=== PATIENT | female | born 1970 | race Caucasian/White ===

== ENCOUNTER → 2022-11-17 10:52 | Outpatient (REF) | payer OTHER, SELFPAY ==
--- NOTE | 2022-11-17 10:58 | CA_ITS ---
Transthoracic Echocardiogram Patient (Last, First, Middle): Kim Persaud, Gender: Female Date of : 1970 Age: 52 Procedure Date: 11/17/2022 Procedure Type: Transthoracic Echocardiogram Location: [facility] Height: 177.8 cm Weight: 167.83 kg BSA: 2.71 m2 Heart Rate: bpm BP: 110 / 70 mmHg Manager Of Development: TO Referring MD: Cheryl Grace MD Concrete Carpenter: Spencer Solis MD Symptoms: LOWER EXT EDEMA R60.0 Study Quality: Fair/Contrast ECG Rhythm: Sinus Conclusions: - Essentially normal study Findings Left Ventricle Normal left ventricular size, thickness, and systolic function. The visually estimated ejection fraction is between 65-70%. Diastolic function is normal for age. Right Ventricle Normal right ventricular cavity size. There is normal right ventricular systolic function. Atria The left atrium is normal in size. Interatrial shunt cannot be excluded. The right atrium was not well visualized. Aortic Valve The aortic valve was not well visualized. There is no aortic valve stenosis. There is no aortic valve regurgitation. Mitral Valve Likely normal mitral valve structure and function. There is trace mitral valve regurgitation. There is no mitral valve stenosis. Pulmonic Valve The pulmonic valve was not well visualized. Tricuspid Valve Likely normal tricuspid valve structure and function. There is trace tricuspid valve regurgitation. The right ventricular systolic pressure is normal. The right ventricular systolic pressure is 18 mmHg. Normal right atrial pressure. There is no evidence of pulmonary hypertension. Great Vessels All visible segments of the aorta are normal in size. The pulmonary artery was not well visualized. Venous The inferior vena cava is normal in size and collapses greater than 50% with inspiration. Pericardium/Pleural There is no evidence of pericardial effusion. Prior Study Comparison No prior study available for comparison. Measurements 2D Linear Measurements IVSd: 0.99 0.6-0.9/0.6-1.0 cm LVIDd: 4.53 3.9-5.3/4.2-5.9 cm LVIDd Index: 1.67 2.4-3.2/2.2-3.1 cm/m2 LVIDs: 2.93 2.0-3.6 cm LVPWd: 0.92 0.7-1.1 cm LA Diam: 3.70 2.7-3.8/3.0-4.0 cm LAIDs Index: 1.37 1.5-2.3 cm/m2 LV Mass: 180.84 67-162/88-224 g LV Mass Index: 66.73 43-95/49-115 g/m2 LVOT Diam: 2.00 3.0+(-)1.3 cm 2D Systolic Function EF 4C: 67.90 >55% EF 2C: 65.00 >55% EF BiP: 66.60 >55% Mitral Valve MV Pk E: 0.78 MV PK A: 0.67 MV Decel Time: 157.00 E/A: 1.20 E'Lateral: 9.14 E'Medial: 8.05 E/E' Med: 9.70 E/E' Lat: 8.50 PHT: 46.00 MVA PHT: 4.78 Decel Grant: 4.98 Aortic Valve AoV Pk Luis: 1.48 AoV Mn Luis: 0.93 AoV VTI: 0.29 AoV Pk Grad: 9.00 Aov Mn Grad: 4.00 KIMBERLY Cont.VTI: 2.06 LVOT LVOT Pk Luis: 0.88 LVOT Mn Luis: 0.60 LVOT VTI: 0.19 LVOT Pk Grad: 3.00 LVOT Mn Grad: 2.00 LVOT Diam: 2.00 LVOT Area: 3.14 Diastolic Function MV Pk E: 0.78 MV Pk A: 0.67 E/A: 1.20 E'Medial: 8.05 E/E' Med: 9.70 E' Laterial: 9.14 E/E' Lat: 8.50 Right Ventricle TAPSE (mm): 25.20 TVS' Luis: 12.40 Tricuspid Valve TR Pk Luis: 1.95 TR Pk Grad: 15.00 RA Press: 3.00 RVSP: 18.00 Great Vessels Aorta Sinus of Valsalva: 2.95 2.0-3.[address] [place]: 2.32 1.7-3.4 cm Ao Asc: 3.00 2.1-3.4 cm Updated in Other Vendor System with Status of Final Spencer Solis MD electronically signed on 11/17/2022 4:48:45 PM with status of Final
== END ==
LOC: HO.CARD 10:52
PROVIDERS: PCP Internal Medicine; Visit Provider Internal Medicine
DX: R60.0 Localized edema (principal)
CPT/HCPCS: 93306; Q9957